=== PATIENT | female | born 1965 | race Caucasian/White ===

== ENCOUNTER → 2024-01-13 16:02 | Outpatient (REF) | payer OTHER, SELFPAY | LOC: WDC 16:02 | PROVIDERS: ATTENDING PHYSICIAN Obstetrics & Gynecology Gynecology; FAMILY PHYSICIAN Internal Medicine | DX: Z12.31 Encounter for screening mammogram for malignant neoplasm of breast (principal) | CPT/HCPCS: 77063; 77067 ==

== ENCOUNTER 2024-02-04 14:05 | Inpatient (IN) | payer OTHER, SELFPAY ==
[2024-02-04] VITALS (7 sets, daily range): BP systolic 105–155; BP diastolic 58–92
--- NOTE | 2024-02-04 08:02 | ED.GENMED ---
History of Present Illness
General
Chief Complaint: Post Operative Problem(s)
Source: patient
Time Seen by Provider: 02/04/24 07:45
History of Present Illness
History of Present Illness:
58yoF with a history of a recent appendectomy 2 weeks ago presenting for evaluation of chest pain. She was diagnosed with appendicitis while on a trip to [place] and the appendectomy was performed in [place] 2 weeks ago. She had some leg swelling
postoperatively and she had a venous duplex 1 week ago which was reportedly normal. She has been having pain underneath her right breast for the past several days. The pain was initially mild but is now worsening. Pain is worse with breathing. She
has not taken anything OTC for her symptoms. She denies any abdominal pain, fevers, cough. No calf pain or leg swelling currently. Her plane ride home from [place] was 4 days ago.
Past History
Past History
ED Past Medical History: None
ED Past Surgical History: None
Phy Exam
General Physical Exam
General Presentation: well appearing and no apparent distress
General age: appears stated age
General Skin: warm and dry
General Habitus: normal
General Mental: alert
ENT Exam
ENT Exam: normocephalic
Cardiovascular Exam
Cardiovascular Exam: regular rate/rhythm and no murmur
Pulmonary Exam
Pulmonary Exam: lungs clear, no respiratory distress, no rales, no rhonchi and other (+Mild tenderness to palpation of R anterior lower ribcage. No skin changes.)
Gastrointestinal Exam
Gastrointestinal Exam: non tender, soft, non distended and other (Surgical incisions healing well, c/d/i)
Neurological Exam
Neurological Exam: alert
[place] Coma Scale
Eye Opening: Spontaneous
Verbal Response: Oriented
Motor Response: Obeys Commands
GCS Total Score: 15
Skin Exam
Skin Exam: normal color and warm/dry
Psychiatric Exam
Psychiatric Exam: normal mood/affect
Course
Orders/Labs/Results
Orders:
Orders
02/04/24 07:37
EKG [Electrocardiogram (*1)] Urgent
Reason for Study: Chest Pain
EKG- Treatment ONCE
02/04/24 08:01
Cardiac Monitoring- Treatment ONCE
Acetaminophen [Tylenol] 1,000 mg PO NOW STA
02/04/24 08:36
Basic Metabolic Panel Urgent
Complete Blood Count/With Diff Urgent
D-Dimer Urgent
NT-proBNP Urgent
Troponin I Urgent
02/04/24 09:33
LFT [Mgiff-[id number]-[id number]] Urgent
Potassium Urgent
02/04/24 09:49
CT Chest Pe Study Urgent
Comment:
Reason For Exam: R sided pleuritic chest pain, elevated D-dimer
02/04/24 12:30
HYDROmorphone [Dilaudid] 0.5 mg IV NOW STA
02/04/24 13:25
COVID-19 Antigen Urgent
Source: Nasal Swab
Procalcitonin Routine
PCT Algorithmm Indication: Respiratory
Abnormal Lab Results
02/04/24 02/04/24
08:36 09:33
RBC 3.90 L 10^6/uL
(4.20-5.40)
Hgb 11.5 L g/dL
(12.0-16.0)
Hct 34.5 L %
(37.0-47.0)
Abs Immat Gran (auto) 0.1 H 10^3/uL
(0-0.05)
Absolute Lymphs (auto) 1.1 L 10^3/uL
(1.2-3.4)
Immature Gran % 1.1 H %
(0-0.5)
Lymphocytes % 16.5 L %
(20.5-51.1)
D-Dimer 1.68 H ug/mlFEU
(0.00-0.50)
Glucose 101 H mg/dl
(70-99)
Total Protein 6.0 L g/dl
(6.3-8.2)
02/04/24 08:36
02/04/24 09:33
Vital Signs
Initial and Last Documented VS:
Initial Vital Signs
Temp Pulse Resp BP Pulse Ox
100 F 90 14 155/92 98
02/04/24 07:33 02/04/24 07:33 02/04/24 07:33 02/04/24 07:33 02/04/24 07:33
Last Documented Vital Signs
Temp Pulse Resp BP Pulse Ox
100 F 66 23 105/60 95
02/04/24 07:33 02/04/24 12:15 02/04/24 12:15 02/04/24 10:00 02/04/24 12:15
MDM/Problems Addressed
Differential Diagnosis Includes:
58yoF here with pleuritic pain underneath R breast x several days. Recent appendectomy 2 weeks ago and plane ride from [place] 4 days ago. No calf pain or swelling. VSS and oxygen saturation is 98% in triage. She appears uncomfortable but is
non-toxic. There is slight tenderness to the chest wall on exam. Differential diagnosis includes but is not limited to: PE, pneumonia, pleural effusion, pleurisy, costochondritis
Initial ED plan: Check cardiac labs, D-dimer, and EKG. Will obtain CXR vs. CT depending on D-dimer results.
*EKG
Interpreted by ED Provider?: Yes
EKG Intrepretation Date: 02/04/24
Heart Rate: 89
Rate: normal
Rhythm: sinus
[place]: normal axis
Interval: normal interval
QRS Pattern: normal QRS
Ischemia: no ischemia
*Critical Care Note
Total Time (30-74mins, 75-104mins- exclusive of procedures): Not Applicable
Update Note
Update Note:
EKG shows NSR without ischemic changes and troponin WNL. D-dimer elevated and CTA chest subsequently ordered. CT is negative for pulmonary embolism but imaging does show small to moderate bilateral pleural effusions with a minimal pericardial
effusion. BNP 783. Unclear etiology of effusions. Will admit for further evaluation and management.
ED Attending Note
-
Portions of this chart may have been created with voice recognition software.� Occasional wrong word or��sound alike� substitutions may have occurred due to the inherent limitations of voice recognition software.
Discharge Plan
Departure
Patient Disposition: Admit
Date of Disposition: 02/04/24
Time of Disposition: 12:37
Presentation/result/management discussed w/ accepting MD/DO: Hospitalist
Discharge Problem:
Bilateral pleural effusion, Pleuritic chest pain
Prescriptions:
No Action
amoxicillin-pot clavulanate 875-125 mg Tablet
1 tab PO BID
Referrals:
Karen Worthington CRNP [Family Provider] -
Interventions
Interventions:
*Risk Screen - Suicide Last Done: 02/04/24 07:33
*General Assessment Last Done: 02/04/24 07:33
*Neglect/Abuse Screening Last Done: 02/04/24 07:33
ED- Fall Risk Assessment Last Done: 02/04/24 07:37
*ED COVID-19 Vaccine History Last Done: 02/04/24 07:33
ED-Skin Assessment Last Done: 02/04/24 07:37
Discharge Date and Time
Print Language: BAHAMIAN
[2024-02-04] MEDS: TYLENOL 1000 MG PO (08:25)
[2024-02-04 08:52] LABS: % Basophils 1.1 % (0-2); % Eosinophils 1.7 % (0-6); % Immature Granulocytes 1.1 % (0-0.5); % Lymphocytes 16.5 % (20.5-51.1); % Monocytes 7.2 % (1.7-9.3); % Neutrophils 72.4 % (42.2-75.2); Absolute Basophils 0.1 10^3/uL (0-0.2); Absolute Eosinophils 0.1 10^3/uL (0-0.7); Absolute Immature Granulocytes 0.1 10^3/uL (0-0.05); Absolute Lymphocytes 1.1 10^3/uL (1.2-3.4); Absolute Monocytes 0.5 10^3/uL (0.1-0.6); Absolute Neutrophils 4.8 10^3/uL (1.4-6.5); Hematocrit 34.5 % (37.0-47.0); Hemoglobin 11.5 g/dL (12.0-16.0); Mean Corp Hgb Conc. 33.3 g/dL (33.0-37.0); Mean Corpuscular Hgb 29.5 pg (27.0-31.0); Mean Corpuscular Volume 88.5 fL (81.0-99.0); Mean Platelet Volume 8.8 fL (7.4-10.4); Nucleated Red Blood Cells % 0 %; Platelet Count 362 10^3/uL (130-400); Red Cell Dist. Width 14.2 % (11.5-14.5); White Blood Cell Count 6.6 10^3/uL (4.8-10.8)
[2024-02-04 09:13] LABS: Blood Urea Nitrogen 14 mg/dl (7-17); Calcium 9.1 mg/dl (8.4-10.2); Carbon Dioxide 28 mmol/L (22-30); Chloride 105 mmol/L (98-107); Glucose 101 mg/dl (70-99); Sodium 143 mmol/L (135-145); eGFR > 60.00
[2024-02-04 09:16] LABS: NT-proBNP 783 pg/ml; Troponin I < 0.012 ng/ml
[2024-02-04 09:43] LABS: D-Dimer 1.68 ug/mlFEU (0.00-0.50)
[2024-02-04 10:01] LABS: ALT (SGPT) 13 U/L (0-35); AST (SGOT) 17 U/L (14-36); Albumin 3.7 g/dl (3.5-5.0); Alkaline Phosphatase 60 U/L (38-126); Direct Bilirubin 0.1 mg/dl (0.0-0.4); Potassium 4.3 mmol/L (3.5-5.1); Total Bilirubin 0.4 mg/dl (0.2-1.3)
[2024-02-04] MEDS: DILAUDID 0.5 MG IV ×2 (12:38→17:24)
--- NOTE | 2024-02-04 12:54 | HPS.HSE ---
Family Physician
-
Family Physician: MARION Padilla
Chief Complaint
-
chest pain
History of Present Illness
Ms. Lala Blanchard is a 58 yo woman with hx appendectomy 2 weeks ago presents to the ER with 3 days of pleuritic chest pain.
Patient was admitted to a hospital in [place] last week with appendicitis, she stated doctors told her it was severe, but not perforated. She was discharged on 10 days of Augmentin which she has been taking. Patient reports having some leg swelling
post op with normal LE US without DVT. She flew back to [place] on Thursday. On Thursday she developed sharp pain on right side of chest that hurts with a deep breath. No central chest pressure or pain and no pain on left side.
No lightheadedness or dizziness. No fevers/chills. No abdominal pain. No nausea/vomiting. LE swelling improving, she has been wearing compression stockings. She had a rash while hospitalized in [place] that is now resolved.
Medical History
Past Medical History
Past Medical History: Reports None
Past Surgical History: Reports None
Social History
Tobacco: Non-smoker
Alcohol: None
Family History
Family History: Not pertinent
Allergies / Home Medications
Allergies reflects when Allergies were last updated in [facility].
Home Medications with original date entered in [facility]
Allergy/Medication List:
Allergies
Allergy/AdvReac Type Severity Reaction Status Date / Time
No Known Allergies Allergy Verified 02/04/24 07:37
Home Medications
amoxicillin 875 mg-potassium clavulanate 125 mg tablet 1 tab PO BID 02/04/24
Review of Systems
-
History Source: Patient
A 12 point ROS was completed and negative except as noted: Yes
Physical Exam
Vital Signs
Vital Signs
Temp Pulse Resp BP Pulse Ox
100 F 66 23 105/60 95
02/04/24 07:33 02/04/24 12:15 02/04/24 12:15 02/04/24 10:00 02/04/24 12:15
Physical Exam
General: No Apparent Distress and Conversant
HEENT: PERRLA
Respiratory: Other (limited inspiration 2/2 pain ); No Wheezes
Cardiac: S1/S2 and Regular Rhythm
GI: Soft and Non Tender
Musculoskeletal: No Edema
Skin: Warm and Dry; No Rash
Neuro: AO x 3
Psych: Calm
Laboratory Results
-
02/04/24 08:36
02/04/24 09:33
Laboratory Results
Total Bilirubin 0.4 mg/dl (0.2-1.3) 02/04/24 09:33
AST 17 U/L (14-36) 02/04/24 09:33
ALT 13 U/L (0-35) 02/04/24 09:33
Alkaline Phosphatase 60 U/L (38-126) 02/04/24 09:33
Troponin I < 0.012 ng/ml 02/04/24 08:36
Data Reviewed
-
Diagnostic Radiology: Report Reviewed by me
Lab Data: Labs Reviewed by me
Impression/Plan
-
Ms. Lala Blanchard is a 58 yo woman with hx appendectomy 2 weeks ago presents to the ER with chest pain.
Triage VS: T 100, P 90, RR 14, BP 155/92, SpO2 98%
LABS: Na 143, K+ 4.3, Cl 105, CO2 28, BUN 14, Cr 0.7, Glucose 101, liver enzymes WNL
CHEST CT
IMPRESSION: Examination is negative for pulmonary embolism.
Small to moderate bilateral pleural effusions, right slightly larger than left. Compressive atelectasis within the adjacent posterior lower lobes of the lungs.
Additionally, slightly more anteriorly within the lower lobes of the lungs, there is patchy groundglass opacity. This could represent atelectasis, but pneumonia is a differential consideration, and please correlate clinically.
Minimal pericardial effusion.
Of note, no evidence for Marilyn B lines, with no findings that would be considered highly suggestive of a diffuse interstitial edema pattern.
Bilateral Pleural Effusions
Minimal pericardial Effusion
Sharp pleuritic chest pain
-chest CT is negative for PE, positive for bilateral pleural effusions right greater than left
-will check Covid and Procalcitonin
-admit to telemetry
-US Chest to see if fluid large enough for thoracentesis
-TTE
-consult Pulmonary
-Toradol to help with inflammatory pain
-IV dilaudid PRN severe pain
Recent Appendicitis
-patient to complete Augmentin course tomorrow - will order
DVT PPx Lovenox subQ
FULL CODE
[2024-02-04 15:09] LABS: COVID-19 Antigen Negative (Negative)
[2024-02-04] MEDS: TORADOL 15 MG IV ×2 (15:39→22:03)
[2024-02-04] MEDS: AUGMENTIN 875 MG/125 MG 1 TABLET PO ×2 (15:41→22:02)
[2024-02-04 15:50] LABS: Procalcitonin < 0.05 ng/ml (0.0-0.25)
[2024-02-04] MEDS: LOVENOX 40 MG SC (17:21)
--- NOTE | 2024-02-04 17:21 | PTCARENOTE ---
pt presents from ED via stretcher. pt is AAO*3, Vss, c/o pain on upper R quadrant. pt is oriented to the room. call cortés within the reach. plan of care ongoing.
--- NOTE | 2024-02-04 17:25 | CON.PUL ---
Consultation
Consultation Request
Date/Time Consultation Requested: 02/04/2024 - 161
Date/Time Consultation Performed: 02/04/2024 - 170
Requesting Provider: Dr. Chahal
Performing Provider: Dr. Quezada
Reason for Consultation: Chest pain/pleural effusions
Medical History
-
Chief Complaint: Right-sided chest pain
History of Present Illness:
58-year-old female nonsmoker with a past medical history of GERD, incidentally discovered pulmonary nodule (3 mm) and appendicitis s/p laparoscopic appendectomy (01/23/2024 in [facility]) who presents with severe right-sided chest pain. The
patient recently went to [place] for vacation, however on the way there she started to develop pain under her right breast. The pain was so bad that they did not make the flight and instead went to [facility] on 01/21/2024, and imaging was
completed which she was told was inflammation within her stomach. She was started on antacids with Protonix + Pepcid and then discharged home. They changed their flight and they ended up getting to [place] about a day and a half later and then she
had RLQ abd pain that later went to her belly button, and it became so severe that she ended up going to a hospital in [place]. She was told that she had appendicitis and she underwent a laparoscopic appendectomy on 01/23/2024. Procedure was
uncomplicated however the patient said that there was some collection that they were thinking about draining (she is not able to elaborate further details on this). She ultimately was discharged but then went back to the ER in [place] on 01/28/2024
due to lower extremity edema. Her left leg was worse than the right. DVT was suspected however ultrasound was reportedly done and was negative, per patient. She has been using compression stockings since that time which has been helping her leg
swelling. She is now coming in because this past Thursday (02/01/2024), she has been developing right-sided chest pain. She has shortness of breath when the pain comes on otherwise she has no difficulty breathing. In the ER she had a low-grade fever
to 100 �F, pulse rate 90, breathing at 14 breaths/min, BP 155/92 and saturating 98% on room air. Labs showed normal WBC at 6.6, Hb 11.5, D-dimer 1.68, troponin negative at <0.012, proBNP 783, procalcitonin <0.05, and COVID antigen negative. CTA
chest done which was negative for an acute PE, and there were small�moderate bilateral pleural effusions (R >L) with patchy groundglass opacities in the lower lobes of the lung with a minimal pericardial effusion. Chest ultrasound was done
confirming presence of small�moderate bilateral pleural effusions. Patient was given Tylenol and hydromorphone in the ER and then admitted to the hospitalist service with pulmonary consulted for additional management/recommendations.
When I saw the patient she was resting in bed, in no acute distress with her , Thanh, at bedside. She currently is doing okay at rest but when she gets her right-sided chest pain she has great difficulty breathing. She has no reported
abdominal pain, nausea, vomiting, fevers or chills. Also has no shortness of breath when laying flat and no shortness of breath waking her up from sleep. Also denies abdominal swelling, neck swelling, or leg swelling.
PMHx: GERD, appendicitis s/p laparoscopic appendectomy (12/2023 while in [place], [place]), pulmonary nodule (3mm)
PSHx: Laparoscopic appendectomy (performed in hospital in [place] and 12/2023), cholecystectomy, tonsillectomy
Past Medical History
Past Medical History: Other (Above as per HPI)
Past Surgical History: Other (Above as per HPI)
Social History
Tobacco: Non-smoker
Alcohol: None
Drug: None
Personal: (: Thanh)
Living: With Family
Family History
Family History: Other (Paternal grandfather: Alzheimer's dementia; maternal grandfather: SLE)
Allergies / Home Medications
Allergies
Allergy/AdvReac Type Severity Reaction Status Date / Time
No Known Allergies Allergy Verified 02/04/24 07:37
Home Medications
�Medication �Instructions �Recorded �Confirmed �Last Taken �Type
amoxicillin 875 mg-potassium 1 tab PO BID Infection 02/04/24 02/04/24 02/03/24 History
clavulanate 125 mg tablet
Review of Systems
-
History Source: Patient
All other systems: Negative unless noted
Vitals / Labs / Diagnostic Testing
Vital Signs
Temp Pulse Resp BP Pulse Ox
98.6 F 86 18 121/58 97
02/04/24 19:22 02/04/24 19:22 02/04/24 19:22 02/04/24 19:22 02/04/24 19:22
Lab Data
02/04/24 08:36
02/04/24 09:33
Diagnostic Testing:
Physical Exam
-
HEENT: Normocephalic and Anicteric
Cardiovascular: S1/S2 and Peripheral Edema (negative)
Respiratory: Clear, Wheeze (negative), Rales (negative), Rhonchi (negative), Non-Labored Respirations and Other (Diminished breath sounds bilaterally in the bases; remainder of lung langston are clear to auscultation bilaterally)
GI: Soft, Non Distended, Non Tender and Normal Bowel Sounds
Neurology: AO x 3 and Tremors (negative)
Skin: Warm and Dry
General: Respiratory Distress (negative), Comfortable, Pain (right sided chest pain, reproducible with palpation), Fever (negative) and Chills (negative)
Assessment
-
Assessment: 58-year-old female nonsmoker with a PMHx of GERD, incidentally discovered pulmonary nodule (3 mm) and appendicitis s/p laparoscopic appendectomy (01/23/2024 in [place], [place]) who presents with severe right-sided chest pain. The
patient and her recently were heading to [place] for vacation when she developed right lower chest/upper abdominal pain and ended up going to hospital at the [facility] on 01/21/2024 was diagnosed with gastritis and discharged on
antacids. They later took a flight to [place] and ended up going to [facility] on 01/22 where she was diagnosed with appendicitis and underwent laparoscopic appendectomy. Course uncomplicated and she was discharged on Augmentin. She went
back to the ER on 01/28/2024 for lower extremity edema which resulted in negative unless mentioned above duplex study for DVT (per patient). She is now been having severe right-sided pleuritic chest pain has been worsening since this past Thursday
(02/01/2024). When pain is not ongoing, she feels okay with no shortness of breath. She had a low-grade fever in the ER to 100 �F, procalcitonin was negative at <0.05, troponin was negative at <0.012, and CTA chest showed bilateral pleural
effusions with no acute PE and bibasilar patchy groundglass opacities above the pleural effusions. Also a small pericardial effusion. She was given pain medications in the ER and admitted to the hospitalist service and now pulmonary consulted for
additional management/recommendations.
Chronic conditions [employer]: GERD, appendicitis s/p laparoscopic appendectomy (12/2023 while in [place], [place]), pulmonary nodule (3mm)
Impression:
#Severe right-sided chest pain which is pleuritic in nature
#Bilateral pleural effusions, suspected to be due to recent appendicitis, possibly with peritonitis s/p appendicitis with translocation of ascitic fluid into pleural space; unlikely heart failure
#Anemia
#Elevated proBNP (783 on 02/04/2024)
#Incidentally discovered 3 mm nodule (seen during imaging while at [facility] on 01/21/2024)
#GERD
Plan:
- Check abdominal ultrasound with Dopplers to assess liver morphology, assess for ascites and see if any other intra-abdominal source could be responsible for bilateral pleural effusions
- She clinically does not have hallmark features of CHF, with no orthopnea, no PND, no lower extremity edema and no abdominal swelling, and no apparent JVD
- This is why I feel that the pleural effusions are likely due to intra-abdominal source given her recent appendicitis with laparoscopic appendectomy; she told me that during her hospitalization in [facility], that she had some sort of
'collection,' and they were thinking about draining it. She was unable to elaborate further details on this. We should try to get the actual medical records from [facility]
- Check transthoracic echo to assess LVEF, valvular heart function and right-sided pressures
- If abdominal ultrasound with Dopplers + echo are unrevealing then would consider imaging with CT, check and CT chest and even possibly CT abdomen/pelvis to see if any etiology of her chest pain, as well as any intra-abdominal etiology of her
pleural effusions
- Monitor I/O
- Consider trial of diuresis --> I will give her 20mg IV lasix now given she is Lasix na�ve
- Patient was finishing up a course of Augmentin following her recent bout of appendicitis --> complete this while she is currently hospitalized and then stop antibiotics
- Unclear if chest pain is a sort of pleurisy; given that she also has pericardial fluid, she could have some sort of pleuropericarditis with an inflammatory etiology
- Check CRP + ESR --> if inflammatory markers are markedly elevated then would consider a trial of systemic steroids
- There is no EKG findings suspicious for pericarditis so would hold off at the moment with colchicine or high-dose aspirin
- Consult cardiology given her chest pain findings with pericardial effusion as she may need a pericardial drain if enlarges or if there are signs of early tamponade on echo
- Pain control - prn dilaudid; will also add lidocaine patch
- Aspiration precautions
- Maintain SpO2 >90-94% with supplemental O2 as needed
- Incentive spirometer encouraged
- Replete electrolytes with K>4, Mg>2
- Maintain euglycemia with goal BG >100 and <180
- prn nebulized bronchodilators - not currently bronchospastic
- Regarding her 3 mm nodule, she is a non-smoker with no personal history of cancer and no family history of malignancy. No unintentional weight loss, night sweats or coughing up blood. Based on Fleischner guidelines, no additional follow-up is
needed at this time
- DVT ppx: LMWH
Pulmonary service will continue to follow along.
Data:
CTA Chest 02/04/2024:
Examination is negative for pulmonary embolism.
Small to moderate bilateral pleural effusions, right slightly larger than left. Compressive atelectasis within the adjacent posterior lower lobes of the lungs.
Additionally, slightly more anteriorly within the lower lobes of the lungs, there is patchy groundglass opacity. This could represent atelectasis, but pneumonia is a differential consideration, and please correlate clinically.
Minimal pericardial effusion.
Of note, no evidence for Marilyn B lines, with no findings that would be considered highly suggestive of a diffuse interstitial edema pattern.
Total time spent today was 57 minutes for this encounter. Time includes reviewing laboratory test/imaging results, reviewing pertinent medical records, obtaining and reviewing medical history, performing an appropriate exam, ordering medications,
tests and procedures. Time also includes documentation of this encounter, coordinating patient care and communicating with other healthcare professionals. Total time does not include separately billed tests performed on this date of service.
[2024-02-04] MEDS: LASIX 20 MG IV (20:35)
[2024-02-04] MEDS: LIDOCAINE 4% PATCH 1 PATCH TOPICAL (20:37)
[2024-02-05] VITALS (11 sets, daily range): BP systolic 62–152; BP diastolic 54–93
[2024-02-05] MEDS: TORADOL 15 MG IV ×4 (03:48→21:36)
[2024-02-05 08:10] LABS: % Basophils 0.7 % (0-2); % Immature Granulocytes 0.6 % (0-0.5); % Lymphocytes 16.9 % (20.5-51.1); % Monocytes 9.4 % (1.7-9.3); % Neutrophils 71.4 % (42.2-75.2); Absolute Basophils 0.1 10^3/uL (0-0.2); Absolute Eosinophils 0.1 10^3/uL (0-0.7); Absolute Immature Granulocytes 0.1 10^3/uL (0-0.05); Absolute Lymphocytes 1.4 10^3/uL (1.2-3.4); Absolute Monocytes 0.8 10^3/uL (0.1-0.6); Absolute Neutrophils 5.8 10^3/uL (1.4-6.5); Hematocrit 32.5 % (37.0-47.0); Hemoglobin 10.9 g/dL (12.0-16.0); Mean Corp Hgb Conc. 33.5 g/dL (33.0-37.0); Mean Corpuscular Hgb 30.4 pg (27.0-31.0); Mean Corpuscular Volume 90.8 fL (81.0-99.0); Nucleated Red Blood Cells % 0 %; Platelet Count 345 10^3/uL (130-400); Red Blood Cell Count 3.58 10^6/uL (4.20-5.40); White Blood Cell Count 8.1 10^3/uL (4.8-10.8)
[2024-02-05 08:30] LABS: Erythrocyte Sed Rate 26 mm/hour (0-20)
[2024-02-05] MEDS: AUGMENTIN 875 MG/125 MG 1 TABLET PO ×2 (09:14→20:25)
[2024-02-05 09:39] LABS: Blood Urea Nitrogen 15 mg/dl (7-17); Calcium 8.9 mg/dl (8.4-10.2); Carbon Dioxide 28 mmol/L (22-30); Chloride 104 mmol/L (98-107); Estimated Creatinine Clearance 75 ml/min; Glucose 98 mg/dl (70-99); Magnesium 2.2 mg/dl (1.6-2.3); Phosphorus 3.8 mg/dl (2.5-4.5); Potassium 4.5 mmol/L (3.5-5.1); Sodium 142 mmol/L (135-145); eGFR > 60.00
--- NOTE | 2024-02-05 09:46 | W.PN.PUL3 ---
Today's Communication / Plan
-
Continue with gentle diuresis
Recheck CXR tomorrow morning
If pleural effusions persist then she may need several more days of Lasix which can likely be PO and continued s/p discharge with eventual stop date
Awaiting medical records from [facility]
Finish antibiotic course that she was on CAR WIPER for her recent severe appendicitis s/p laparoscopic appendectomy
Pain control
Pulmonary service will continue to follow along. Outpatient follow-up will also be arranged
Assessment
-
Assessment: 58-year-old female nonsmoker with a PMHx of GERD, incidentally discovered pulmonary nodule (3 mm) and appendicitis s/p laparoscopic appendectomy (01/23/2024 in [place], [place]) who presents with severe right-sided chest pain. The
patient and her recently were heading to [place] for vacation when she developed right lower chest/upper abdominal pain and ended up going to hospital at the [facility] on 01/21/2024 was diagnosed with gastritis and discharged on
antacids. They later took a flight to [place] and ended up going to [facility] on 01/22 where she was diagnosed with appendicitis and underwent laparoscopic appendectomy. Course uncomplicated and she was discharged on Augmentin. She went
back to the ER on 01/28/2024 for lower extremity edema which resulted in negative unless mentioned above duplex study for DVT (per patient). She is now been having severe right-sided pleuritic chest pain has been worsening since this past Thursday
(02/01/2024). When pain is not ongoing, she feels okay with no shortness of breath. She had a low-grade fever in the ER to 100 �F, procalcitonin was negative at <0.05, troponin was negative at <0.012, and CTA chest showed bilateral pleural
effusions with no acute PE and bibasilar patchy groundglass opacities above the pleural effusions. Also a small pericardial effusion. She was given pain medications in the ER and admitted to the hospitalist service and now pulmonary consulted for
additional management/recommendations.
Chronic conditions CAR WIPER: GERD, appendicitis s/p laparoscopic appendectomy (12/2023 while in [place], [place]), pulmonary nodule (3mm)
Impression:
#Severe right-sided chest pain which is pleuritic in nature
#Bilateral pleural effusions, suspected to be due to recent appendicitis, likely with peritonitis s/p appendicitis with translocation of ascitic fluid into pleural space; unlikely heart failure
#Anemia
#Elevated proBNP (783 on 02/04/2024)
#Incidentally discovered 3 mm nodule (seen during imaging while at [facility] on 01/21/2024)
#GERD
Plan:
- Check abdominal ultrasound with Dopplers --> shows slightly enlarged liver with no focal hepatic lesion, no report of ascites and history of cholecystectomy with no biliary ductal dilatation
- She clinically does not have hallmark features of CHF, with no orthopnea, no PND, no lower extremity edema and no abdominal swelling, and no apparent JVD
- This is why I feel that the pleural effusions are likely due to intra-abdominal source given her recent appendicitis with laparoscopic appendectomy; she told me that during her hospitalization in [facility], that she had some sort of
collection at her appendix site due to the severe inflammation, and the surgeon was thinking about draining it. She was unable to elaborate further details on this. We should try to get the actual medical records from [facility] (I request
this today � 02/05/2024)
- She said that she also gained about 11 pounds following her hospitalization from [place]
- Check transthoracic echo --> shows normal LV size and systolic function with LVEF 60 to 65% with normal diastolic function, normal RV size and function, mild MR, mild TR and normal PASP. Small pericardial effusion without hemodynamic compromise
- If she clinically deteriorates, then consider imaging with CT, check and CT chest and even possibly CT abdomen/pelvis to see if any etiology of her chest pain, as well as any intra-abdominal etiology of her pleural effusions
- Monitor I/O
- Trial of diuresis --> on 02/03 I gave her 20mg IV lasix given she is Lasix na�ve --> give another 40mg IV lasix tomorrow AM and re-check CXR
- She underwent right-sided thoracentesis today, removing 250 cc of clear yellow, exudative fluid (suspect pseudo-exudative in setting of Lasix on 02/03), LDH: 187, pH 7.5, and WBC 3069 with 54% monocytes.
-Follow-up pleural fluid culture + cytopathology
- Patient was finishing up a course of Augmentin following her recent bout of appendicitis --> complete this while she is currently hospitalized and then stop antibiotics
- Unclear if chest pain is a sort of pleurisy; given that she also has pericardial fluid, she could have some sort of pleuropericarditis with an inflammatory etiology
- ESR 26, and CRP: 24 --> although these are elevated these are not severely high. Hold off on systemic steroids at this time
- There is no EKG findings suspicious for pericarditis so would hold off at the moment with colchicine or high-dose aspirin
- Cardiology consulted --> recs appreciated (holding off on colchicine for now and no need for pericardial drain as per echo findings)
- Pain control - prn dilaudid; will also add lidocaine patch
- Aspiration precautions
- Maintain SpO2 >90-94% with supplemental O2 as needed
- Incentive spirometer encouraged
- Replete electrolytes with K>4, Mg>2
- Maintain euglycemia with goal BG >100 and <180
- prn nebulized bronchodilators - not currently bronchospastic
- Regarding her 3 mm nodule, she is a non-smoker with no personal history of cancer and no family history of malignancy. No unintentional weight loss, night sweats or coughing up blood. Based on Fleischner guidelines, no additional follow-up is
needed at this time
- DVT ppx: LMWH
Pulmonary service will continue to follow along.
Data:
CTA Chest 02/04/2024:
Examination is negative for pulmonary embolism.
Small to moderate bilateral pleural effusions, right slightly larger than left. Compressive atelectasis within the adjacent posterior lower lobes of the lungs.
Additionally, slightly more anteriorly within the lower lobes of the lungs, there is patchy groundglass opacity. This could represent atelectasis, but pneumonia is a differential consideration, and please correlate clinically.
Minimal pericardial effusion.
Of note, no evidence for Marilyn B lines, with no findings that would be considered highly suggestive of a diffuse interstitial edema pattern.
Total time spent today was 38 minutes for this encounter. Time includes reviewing laboratory test/imaging results, reviewing pertinent medical records, obtaining and reviewing medical history, performing an appropriate exam, ordering medications,
tests and procedures. Time also includes documentation of this encounter, coordinating patient care and communicating with other healthcare professionals. Total time does not include separately billed tests performed on this date of service.
Subjective Data
-
Date of Service:
Date of Service: February 05, 2024
Chief Complaint: Pulmonary Follow Up
Subjective:
Patient seen after her thoracentesis. She does not feel much different than yesterday. She says the pain medications is helping greatly. Thoracentesis removed to 50 cc from right hemithorax which was exudative due to LDH. She otherwise is
breathing comfortably on room air. No acute events reported from overnight. She currently denies HODGES, abdominal pain, nausea, fevers or chills.
Review of Systems
General: Other (Negative unless mentioned above)
Objective Data
Data Reviewed
Vital Signs / I&O / Oxygen:
Vital Signs
Temp Pulse Resp BP Pulse Ox
98.1 F 87 18 152/93 94
02/05/24 11:08 02/05/24 11:08 02/05/24 11:08 02/05/24 11:08 02/05/24 11:08
Intake and Output
02/04/24 02/05/24 02/06/24
06:59 06:59 06:59
Intake Total 480 / 480
Balance 480 / 480
SaO2 94
Physical Exam
General: Respiratory Distress (negative), Comfortable, Chills (negative) and Sweats (negative)
HEENT: Normocephalic and Anicteric
Cardiovascular: S1-S2 and Peripheral Edema (negative)
Respiratory: Wheeze (negative), Crackles (negative), Rhonchi (negative) and Other (Diminished breath sounds at the bases)
GI: Soft, Non Distended, Non Tender and Normal Bowel Sounds
Neurology: AO x 3 and Tremors (negative)
Skin: Warm, Dry and Jaundice (negative)
Labs/Micro/Reports
Lab Data
02/05/24 07:28
02/05/24 07:28
--- NOTE | 2024-02-05 13:43 | CON.CAR ---
Addendum entered and electronically signed by Raulito Dee MD 02/05/24 16:35:
I saw and examined the patient.
The [employer] Agent's note was reviewed and I agree with the note.
Comment:
GEN: No distress, awake, Ox3
HEENT: supple, anicteric, mmm
LUNGS: dec BS R base
CV: Reg, S1/S2, / syst LSB, no murmur
ABD: soft, BS+, NT/ND
EXT: No edema
NEURO: Gross non-focal
SKIN: No rash
plan:
She has a past medical history of GERD who presents with right sided pleuritic chest pain. She had recent appendicitis 2 weeks ago and was on amoxicillin as outpatient. For several days she has noticed right sided chest discomfort associated with
deep breaths. This was in her right axilla under her breast area. She was found to have a low-grade fever with an abnormal D-dimer. CT scan had no PE but did reveal bilateral pleural effusions right greater than left. Echocardiogram revealed
preserved ejection fraction with no significant valve disease and a trace to small pericardial effusion. PA pressure 25-30.
Agree with plan for diagnostic thoracentesis. proBNP is very mildly elevated. I do not suspect that the pericardial effusion is significant and clinically her EKG is normal with no overt signs of pericarditis.
Agree with plan to gently diurese and follow her clinically. Will defer to pulmonary regarding antibiotics.
At this point I would likely hold off on colchicine. Will repeat EKG in AM.
Original Note:
Consultation
Consultation Request
Date/Time Consultation Requested: 02/05/2024
Date/Time Consultation Performed: 02/05/2024
Requesting Provider: Dr. Lalo Cedeno
Performing Provider: Sarai Elizabeth PA-C for Dr. Dee
Reason for Consultation: Chest pain, pericardial effusion
Medical History
-
History of Present Illness:
Patient is a 58-year-old female with past medical history significant for GERD, chronic lumbar back pain who presented to emergency department 02/04/2024 with right sided pleuritic chest pain. Patient was recently treated for acute appendicitis and
underwent urgent appendectomy in [facility] while on vacation. Postoperatively she had some lower extremity edema and reports she had normal lower extremity venous ultrasounds while in [place]. She has been utilizing compression stockings
since her hospitalization with gradual improvement of edema. She was discharged home on 10 days of Augmentin for concern of possible fluid collection and flew back to [place] on 01/31/2024. On 02/01/2024 she developed sharp right sided chest
discomfort associated with mild shortness of breath which was worse with taking deep breaths. She denied associated fevers, chills, abdominal pain, nausea, vomiting, lightheaded or dizziness. Found to have low-grade fever on presentation to
emergency department. D-dimer 1.68. Troponin was negative. proBNP 783. Prolactin unremarkable. CT of chest was negative for PE but did show small to moderate bilateral pleural effusions right greater than left with patchy groundglass opacities
in lower lobes. There was also minimal pericardial effusion. Chest ultrasound was performed demonstrating small to moderate bilateral pleural effusions. Patient had echocardiogram 02/05/2024 which demonstrated preserved ejection fraction with mild
MR, TR and small pericardial effusion without evidence of hemodynamic compromise.
Past medical history:
GERD
Lumbar back pain
Spondylolysis
Cholecystectomy
Tonsillectomy
Appendectomy
Past Medical History
Past Medical History: Other (See HPI)
Past Surgical History: Appendectomy (12/2023), Cholecystectomy (2009) and Tonsilectomy
Social History
Tobacco: Non-Smoker
Alcohol: None
Drug: None
Personal:
Living: With Family
Family History
Family History: Other (Paternal grandfather: Alzheimer's dementia; maternal grandfather: SLE))
Allergies / Home Medications
Allergy/AdvReac Type Severity Reaction Status Date / Time
No Known Allergies Allergy Verified 02/04/24 07:37
�Medication �Instructions �Recorded �Confirmed �Type
amoxicillin 875 mg-potassium 1 tab PO BID Infection 02/04/24 02/04/24 History
clavulanate 125 mg tablet
Review of Systems
-
History Source: Patient
All other systems: Negative unless noted
Physical Exam
Vital Signs
Temp Pulse Resp BP Pulse Ox
98.1 F 87 18 152/93 94
02/05/24 11:08 02/05/24 11:08 02/05/24 11:08 02/05/24 11:08 02/05/24 11:08
GEN: No distress, awake, Ox3
HEENT: supple, anicteric, mmm
LUNGS: Very mildly diminished at bases otherwise CTA, no wheezes/rales
CV: Reg, S1/S2, no murmur, rub or gallop
ABD: soft, BS+, NT/ND
EXT:Trace bilateral edema with intact compression socks
NEURO: Gross non-focal
SKIN: No rash, warm, dry, pink
Lab Results
02/05/24 07:28
02/05/24 07:28
Troponin I < 0.012 ng/ml 02/04/24 08:36
Aih-F-Ychxcjfjhrp Pept 783 pg/ml 02/04/24 08:36
Impression / Plan
-
Family Physician: MARION Padilla
Wash Box Operator: None prior to hospitalization. Initial consult Dr. Dee
Impression:
Presented 02/04/2024 with pleuritic right sided chest pain
Pericardial effusion, small on echo
Incidental 3 mm pulmonary nodule
Small to moderate bilateral pleural effusions right greater than left
s/p Successful right ultrasound-guided thoracentesis, yielding 250 cc of clear yellow pleural fluid 02/05/2024
Recent appendicitis with laparoscopic appendectomy 01/23/2024
GERD
Echo 02/05/2024: EF 60 to 65%. Normal regional wall motion. Mild MR, mild TR, PAP 25-30 mmHg. Small pericardial effusion without evidence of hemodynamic compromise
Plan:
-Presented 02/04/2024 with pleuritic right sided chest pain associated with shortness of breath.
-Recent appendicitis with laparoscopic appendectomy 01/23/2024, completing course of Augmentin. Abdominal ultrasound 02/05/2024 shows no evidence of biliary ductal dilatation with mild hepatomegaly
-Elevated D-dimer 1.[address] of chest for pulmonary embolism
-Small to moderate bilateral pleural effusions right greater than left. Being followed by pulmonary and was given 1 dose of IV Lasix 02/04/2024. Underwent diagnostic right thoracentesis yielding 250 cc clear yellow fluid 02/05/24, cytology pending
-EKG sinus rhythm without evidence of ischemia. Troponin negative. Patient's lower right sided chest pain does not appear to be ischemic in nature nor does it appear to be secondary to her pericardial effusion. It has improved with Toradol.
-Trace to small pericardial effusion without evidence of hemodynamic compromise. Unclear etiology. Right sided chest pain does not sound like pericarditis.
-Would hold on starting colchicine or steroids at this time. Can consider repeat echocardiogram as outpatient in 3 months or sooner if symptoms should become more concerning for pericardial effusion enlarging/tamponade
-Elevated sed rate (26) and CRP (24). Nonspecific findings given recent appendicitis with urgent appendectomy
HPI 02/05/2024:
Patient is a 58-year-old female with past medical history significant for GERD, chronic lumbar back pain who presented to emergency department 02/04/2024 with right sided pleuritic chest pain. Patient was recently treated for acute appendicitis and
underwent urgent appendectomy in [facility] while on vacation. Postoperatively she had some lower extremity edema and reports she had normal lower extremity venous ultrasounds while in [place]. She has been utilizing compression stockings
since her hospitalization with gradual improvement of edema. She was discharged home on 10 days of Augmentin for concern of possible fluid collection and flew back to [place] on 01/31/2024. On 02/01/2024 she developed sharp right sided chest
discomfort associated with mild shortness of breath which was worse with taking deep breaths. She denied associated fevers, chills, abdominal pain, nausea, vomiting, lightheaded or dizziness. Found to have low-grade fever on presentation to
emergency department. D-dimer 1.68. Troponin was negative. proBNP 783. Prolactin unremarkable. CT of chest was negative for PE but did show small to moderate bilateral pleural effusions right greater than left with patchy groundglass opacities
in lower lobes. There was also minimal pericardial effusion. Chest ultrasound was performed demonstrating small to moderate bilateral pleural effusions. Patient had echocardiogram 02/05/2024 which demonstrated preserved ejection fraction with mild
MR, TR and small pericardial effusion without evidence of hemodynamic compromise.
Data Reviewed
-
EKG: Report Reviewed by me, Discussed with Physician, Discussed with Nurse, Discussed with Patient and Discussed with Family
Radiology: Report Reviewed by me, Discussed with Physician, Discussed with Nurse and Discussed with Patient
CT Scan: Report Reviewed by me, Discussed with Physician, Discussed with Nurse, Discussed with Patient and Discussed with Family
Ultrasound: Report Reviewed by me, Discussed with Physician and Discussed with Patient
Medical Tests (Nuc Med, Echo etc): Report Reviewed by me, Discussed with Physician, Discussed with Patient and Discussed with Family
Labs: Labs Reviewed by me, Discussed with Physician, Discussed with Patient and Discussed with Family
Old Records: Reviewed
--- NOTE | 2024-02-05 15:00 | PTCARENOTE ---
Pt returned from [facility]. Report from Ella RN.Pt awake, alert and oriented x3. Pt has bandaid to right back, CDI. Pt VSS 95% on RA.Pt continues with pain under right breast with inspiration, tolerable at this time. Pt reoriented to room,call cortés
within reach, plan of care continues.
[2024-02-05 15:32] LABS: Body Fluid Mononuclear 53.5 %; Body Fluid Polymorphonuclear 46.5 %; Body Fluid WBC 3269 /CUMM
[2024-02-05 15:37] LABS: Body Fluid Second Tech DW
--- NOTE | 2024-02-05 15:41 | W.PN.HOSP.TC ---
Addendum entered and electronically signed by Mirna Mckenzie MD 02/05/24 17:08:
I saw and evaluated the patient independently. I reviewed the resident�s note and agree with findings and plan as documented by Dr. Cedeno.
GENERAL: well developed, well nourished, female in no apparent distress
HEENT: NC/AT
HEART: regular rate and rhythm, +S1, +S2--no rub heard
LUNGS : clear to auscultation bilaterally--decreased breath sounds bilaterally
ABDOM: soft, nontender, nondistended, + bowel sounds
EXT: no cyanosis, clubbing, or edema
NEUROLOGIC: grossly intact
Pleuritic chest pain--no evidence of PE on CT scan but does have bilateral pleural effusions--also noted was small pericardial effusion--consult IR for thoracentesis, 250 ml from right drained, studies sent--possible etiology is rheum related or
from recent appendix surgery --apprec cards/pulm--agree history and EKG not consistent with pericarditis--lasix given by cards--ECHO done which shows mild MR/TR--follow up as outpt--no need for colchicine
Elevated Inflammatory Markers-- ESR 26, CRP 24- No history of rash or joint pain-- RF/COURTNEY to r/o autoimmune causes
Recent Hx of Appendicitis- Last day of Augmentin from previous admission in [facility]
DVT Proph - Lovenox
Original Note:
Today's Communication/Plan
-
.
Assessment / Plan
Assessment / Plan
1. Pleurisy
- Chest CTA negative for PE
- CTA exhibited small to moderate R>L pleural effusions; US confirmed.
- Cardiology/Pulmonology Consulted
- Pain Control
2. Pleural Effusions
- CTA Chest shows R>L
- [facility] consulted; to perform diagnostic thoracocentesis; 250 cc yellow fluid drained from right
- Follow up fluid cytology, culture/gram stain, LDH/protein
- Given 1 dose of LASIX 11/7; LASIX naive
3. Pericardial Effusion
= Appreciate Cards; can follow up on an outpatient basis
= ECHO shows mild MR, mild TR
- no evidence of cardiovascular compromise
- per cards, can consider repeat echo as outpatient in 2-3 months.
4. Elevated Inflammatory Markers
- ESR 26, CRP 24
- No history of rash or joint pain.
- RF/COURTNEY to r/o autoimmune causes of pleurisy/pericarditis
5. Recent Hx of Appendicitis
- Last day of Augmentin from previous admission in [facility]
6. DVT PPx
- Lovenox
Anticipated Discharge: 24 - 48 hours
Subjective/Interval History
-
Date of Service: February 05, 2024
58F with a PMHx of GERD, incidental pulmonary nodule and very recent history of appendicitis s/p lap appy, lower extremity edema and gastritis who presented with 3 days of pleuritic chest pain without SOB, orthopnea, PND, or cough. Pt does not have
any new complaints this morning.
Objective Data
-
Labs:
Laboratory Results
02/05/24
07:28
WBC 8.1
Hgb 10.9 L
Hct 32.5 L
Plt Count 345
Sodium 142
Potassium 4.5
Chloride 104
Carbon Dioxide 28
BUN 15
Creatinine 0.8
Glucose 98
Calcium 8.9
Vital Signs:
Vital Signs
Temp Pulse Resp BP Pulse Ox
98.5 F 84 15 139/72 94
02/05/24 15:02 02/05/24 15:23 02/05/24 15:13 02/05/24 15:23 02/05/24 15:02
I&O
02/04/24 02/05/24 02/06/24
06:59 06:59 06:59
Intake Total 480 / 480
Balance 480 / 480
Review of Systems
-
History Source: Patient
Constitutional: Reports No Symptoms
Respiratory: Reports Pleurisy (intermittent)
Cardiac: Reports No Symptoms
Abdomen/GI: Reports No Symptoms
Musculoskeletal: Reports No Symptoms
Neuro: Reports No Symptoms
Physical Exam
-
General: Well Developed, Well Nourished and No Apparent Distress
HEENT: Normocephalic and Atraumatic
Respiratory: Clear to Auscultation
Cardiac: Regular Rhythm, S1/S2 and Other (right sided chest tender to palpation mildly)
GI: Soft and Nontender
Skin: Warm and Dry
Neuro: Awake, Alert and AO x 3
Psych: Calm
Data Reviewed
-
Diagnostic Radiology: Report Reviewed by me and Discussed with Patient
CT Scan: Report Reviewed by me and Discussed with Patient
Ultrasound: Report Reviewed by me and Discussed with Patient
Labs: Labs Reviewed by me and Discussed with Patient
[2024-02-05 15:42] LABS: Body Fluid LDH 187 U/L; Body Fluid Protein 2.7 g/dl
--- NOTE | 2024-02-05 16:17 | CM ---
Patient seen at bedside with physicians. Patient stated that she lives with her in a 3 story home. Patient stated that she has no DME at home, PCP was in [place], and she uses the [facility].
[2024-02-05] MEDS: LOVENOX 40 MG SC (17:17)
[2024-02-06 03:09] VITALS: BP 129/70
[2024-02-06] MEDS: TORADOL 15 MG IV (03:14)
[2024-02-06 06:32] LABS: Hematocrit 32.9 % (37.0-47.0); Hemoglobin 10.6 g/dL (12.0-16.0); Mean Corp Hgb Conc. 32.2 g/dL (33.0-37.0); Mean Corpuscular Volume 93.2 fL (81.0-99.0); Mean Platelet Volume 8.9 fL (7.4-10.4); Platelet Count 291 10^3/uL (130-400); Red Blood Cell Count 3.53 10^6/uL (4.20-5.40); Red Cell Dist. Width 13.9 % (11.5-14.5); White Blood Cell Count 5.8 10^3/uL (4.8-10.8)
[2024-02-06 07:11] LABS: ALT (SGPT) 10 U/L (0-35); AST (SGOT) 14 U/L (14-36); Albumin 3.1 g/dl (3.5-5.0); Alkaline Phosphatase 50 U/L (38-126); Blood Urea Nitrogen 16 mg/dl (7-17); Carbon Dioxide 27 mmol/L (22-30); Chloride 106 mmol/L (98-107); Estimated Creatinine Clearance 85 ml/min; Glucose 95 mg/dl (70-99); Potassium 4.2 mmol/L (3.5-5.1); Sodium 142 mmol/L (135-145); Total Bilirubin 0.5 mg/dl (0.2-1.3); Total Protein 5.3 g/dl (6.3-8.2); eGFR > 60.00
[2024-02-06 07:55] VITALS: BP 149/64
[2024-02-06 08:36] LABS: LDH 180 U/L (120-246)
[2024-02-06] MEDS: LASIX 40 MG IV (09:56)
[2024-02-06] MEDS: FLUSH (NSS) 2 FLUSH IV (09:57)
[2024-02-06 11:20] VITALS: BP 118/55
--- NOTE | 2024-02-06 11:42 | W.PN.CARDCBS ---
Today's Communication / Plan
-
Unlikely to have pericarditis
Will sign off
Impression / Plan
-
Family Physician: MARION Padilla
It Help Desk Analyst: None prior to hospitalization. Initial consult Dr. Dee
Impression:
Presented 02/04/2024 with pleuritic right sided chest pain
Pericardial effusion, small on echo
Incidental 3 mm pulmonary nodule
Small to moderate bilateral pleural effusions right greater than left
s/p Successful right ultrasound-guided thoracentesis, yielding 250 cc of clear yellow pleural fluid 02/05/2024
Recent appendicitis with laparoscopic appendectomy 01/23/2024
GERD
Echo 02/05/2024: EF 60 to 65%. Normal regional wall motion. Mild MR, mild TR, PAP 25-30 mmHg. Small pericardial effusion without evidence of hemodynamic compromise
Plan:
Presented 02/04/2024 with pleuritic right sided chest pain associated with shortness of breath and found to have pleural effusions R> L.
Echocardiogram results noted above with small pericardial effusion and no evidence of hemodynamic compromise.
Recent appendicitis with laparoscopic appendectomy 01/23/2024. Abdominal ultrasound 02/05/2024 shows no evidence of biliary ductal dilatation with mild hepatomegaly
Elevated D-dimer 1.[address] of chest for pulmonary embolism.
Elevated sed rate (26) and CRP (24)
Cardiology asked to consider the possible diagnosis of pericarditis.
Presenting ECG and subsequent ECG both without typical ECG findings of pericarditis. R sided location is also not typical of pericarditis.
Overall we feel this is unlikely to be pericarditis and is more c/w pleuritis.
She has undergone thoracentesis and feels 'much better'.
Would hold on starting colchicine or steroids at this time. Can consider repeat echocardiogram as outpatient in 3 months or sooner should symptoms warrant
Will sign odff, please call us back if needed.
HPI 02/05/2024:
Patient is a 58-year-old female with past medical history significant for GERD, chronic lumbar back pain who presented to emergency department 02/04/2024 with right sided pleuritic chest pain. Patient was recently treated for acute appendicitis and
underwent urgent appendectomy in [facility] while on vacation. Postoperatively she had some lower extremity edema and reports she had normal lower extremity venous ultrasounds while in [place]. She has been utilizing compression stockings
since her hospitalization with gradual improvement of edema. She was discharged home on 10 days of Augmentin for concern of possible fluid collection and flew back to [place] on 01/31/2024. On 02/01/2024 she developed sharp right sided chest
discomfort associated with mild shortness of breath which was worse with taking deep breaths. She denied associated fevers, chills, abdominal pain, nausea, vomiting, lightheaded or dizziness. Found to have low-grade fever on presentation to
emergency department. D-dimer 1.68. Troponin was negative. proBNP 783. Prolactin unremarkable. CT of chest was negative for PE but did show small to moderate bilateral pleural effusions right greater than left with patchy groundglass opacities
in lower lobes. There was also minimal pericardial effusion. Chest ultrasound was performed demonstrating small to moderate bilateral pleural effusions. Patient had echocardiogram 02/05/2024 which demonstrated preserved ejection fraction with mild
MR, TR and small pericardial effusion without evidence of hemodynamic compromise.
Progress Note - It Help Desk Analyst
Subjective
Date of Service: February 06, 2024
notes R CP is 'much better' after thoracentesis. No longer pain with every breath, only if she takes 'a very very deep breath' and pain is 'much less'
Objective
Labs:
02/06/24 05:43
02/06/24 05:43
Labs
Hgb 10.6 g/dL (12.0-16.0) L 02/06/24 05:43
Hct 32.9 % (37.0-47.0) L 02/06/24 05:43
Plt Count 291 10^3/uL (130-400) 02/06/24 05:43
Sodium 142 mmol/L (135-145) 02/06/24 05:43
Potassium 4.2 mmol/L (3.5-5.1) 02/06/24 05:43
BUN 16 mg/dl (7-17) 02/06/24 05:43
Creatinine 0.7 mg/dL (0.6-1.0) 02/06/24 05:43
Glucose 95 mg/dl (70-99) 02/06/24 05:43
Troponins
02/04/24
08:36
Troponin I < 0.012
Vital Signs and I&O:
Vital Signs
Temp Pulse Resp BP Pulse Ox
98.2 F 80 14 118/55 98
02/06/24 11:20 02/06/24 11:20 02/06/24 11:20 02/06/24 11:20 02/06/24 11:20
Vital Signs
Temp Pulse Resp BP Pulse Ox
98.2 F 80 14 118/55 98
02/06/24 11:20 02/06/24 11:20 02/06/24 11:20 02/06/24 11:20 02/06/24 11:20
Intake & Output
02/04/24 02/05/24 02/06/24 02/07/24
06:59 06:59 06:59 06:59
Intake Total 480 / 480 960 / 960
Balance 480 / 480 960 / 960
Physical Exam
Physical Exam
well appearing, smiling, sitting in bed, no distress
RRR, Nl S1 and s2, no S3 or S4, 02/02 AHSM, no rubs, nl PMI
Lungs CTA b/l
Ext no c/c/e
--- NOTE | 2024-02-06 13:39 | W.PN.HOSP.TC ---
Addendum entered and electronically signed by Mirna Mckenzie MD 02/06/24 14:03:
I saw and evaluated the patient independently. I reviewed the resident�s note and agree with findings and plan as documented by Dr. Cedeno.
GENERAL: well developed, well nourished, female in no apparent distress
HEENT: NC/AT
HEART: regular rate and rhythm, +S1, +S2--no rub heard
LUNGS : clear to auscultation bilaterally--decreased breath sounds bilaterally
ABDOM: soft, nontender, nondistended, + bowel sounds
EXT: no cyanosis, clubbing, or edema
NEUROLOGIC: grossly intact
Pleuritic chest pain--resolved--no evidence of PE on CT scan but does have bilateral pleural effusions--also noted was small pericardial effusion--apprec IR s/p thoracentesis, 250 ml from right drained, studies sent--possible etiology is from recent
appendix surgery (exudative) --apprec cards/pulm--agree history and EKG not consistent with pericarditis--lasix given by cards--ECHO done which shows mild MR/TR--follow up as outpt--no need for colchicine
Elevated Inflammatory Markers-- ESR 26, CRP 24- No history of rash or joint pain-- RF/COURTNEY to r/o autoimmune causes
Recent Hx of Appendicitis- Last day of Augmentin from previous admission in [facility]
DVT Proph - Lovenox
CODE STATUS --full code
OK for d/c
Original Note:
Today's Communication/Plan
-
. Thoracocentesis yesterday. Symptomatically significantly improved. Discharge today.
Assessment / Plan
Assessment / Plan
1. Pleurisy
- Chest CTA negative for PE
- CTA exhibited small to moderate R>L pleural effusions; US confirmed.
- Cardiology/Pulmonology Consulted
- Pain Control PRN
- Pain improved and well-controlled
2. Pleural Effusions
- CTA Chest shows R>L
- IRAD consulted; to perform diagnostic thoracocentesis; 250 cc yellow fluid drained from right. Left side too small to drain.
- Exudative pattern per Light's Criteria. Likely as a result of the patient's recent appendicitis.
- Given 1 dose of LASIX 02/03; LASIX naive. D/c with 5 days of PO Lasix.
3. Pericardial Effusion
= Appreciate Cards; can follow up on an outpatient basis
= ECHO shows mild MR, mild TR
- no evidence of cardiovascular compromise
- per cards, can consider repeat echo as outpatient in 2-3 months.
4. Elevated Inflammatory Markers
- ESR 26, CRP 24
- No history of rash or joint pain.
- RF/COURTNEY to r/o autoimmune causes of pleurisy/pericarditis; pending
5. Recent Hx of Appendicitis
- Last day of Augmentin from previous admission in [facility]
6. DVT PPx
- Lovenox
Anticipated Discharge: Today
Subjective/Interval History
-
Date of Service: February 06, 2024
Patient reports feeling much better today. Patient endorses intermittent pleuritic chest pain, however, it is much improved and much less frequent than it was yesterday. Patient denies shortness of breath, cough, dyspnea on exertion, orthopnea,
chest pain at rest, lower extremity edema.
Objective Data
-
Labs:
Laboratory Results
02/06/24
05:43
WBC 5.8
Hgb 10.6 L
Hct 32.9 L
Plt Count 291
Sodium 142
Potassium 4.2
Chloride 106
Carbon Dioxide 27
BUN 16
Creatinine 0.7
Glucose 95
Calcium 9.0
Total Bilirubin 0.5
AST 14
ALT 10
Alkaline Phosphatase 50
Vital Signs:
Vital Signs
Temp Pulse Resp BP Pulse Ox
98.2 F 80 14 118/55 98
02/06/24 11:20 02/06/24 11:20 02/06/24 11:20 02/06/24 11:20 02/06/24 11:20
I&O
02/05/24 02/06/24 02/07/24
06:59 06:59 06:59
Intake Total 480 / 480 960 / 960
Balance 480 / 480 960 / 960
Review of Systems
-
History Source: Patient
Constitutional: Reports No Symptoms
Respiratory: Reports Pleurisy (much improved.)
Cardiac: Reports No Symptoms
Abdomen/GI: Reports No Symptoms
Musculoskeletal: Reports No Symptoms
Neuro: Reports No Symptoms
Physical Exam
-
General: Well Developed, Well Nourished, No Apparent Distress, Comfortable and Conversant
HEENT: Normocephalic and Atraumatic
Respiratory: Clear to Auscultation
Cardiac: Regular Rhythm and S1/S2
GI: Soft and Nontender
Musculoskeletal: No Edema
Skin: Warm and Dry
Neuro: Awake, Alert and Oriented
Psych: Calm
Data Reviewed
-
Diagnostic Radiology: Report Reviewed by me and Discussed with Patient
Medical Tests (Nuc Med, Echo etc): Report Reviewed by me and Discussed with Patient
Labs: Labs Reviewed by me and Discussed with Patient
--- NOTE | 2024-02-06 14:02 | W.PN.PUL3 ---
Today's Communication / Plan
-
Discharge planning
Follow pleural fluid cytology
Outpatient pulmonary follow-up
Sign off
Assessment
-
Assessment: 58-year-old female nonsmoker with a PMHx of GERD, incidentally discovered pulmonary nodule (3 mm) and appendicitis s/p laparoscopic appendectomy (01/23/2024 in [place], [place]) who presents with severe right-sided chest pain. The
patient and her recently were heading to [place] for vacation when she developed right lower chest/upper abdominal pain and ended up going to hospital at the [facility] on 01/21/2024 was diagnosed with gastritis and discharged on
antacids. They later took a flight to [place] and ended up going to [facility] on 01/22 where she was diagnosed with appendicitis and underwent laparoscopic appendectomy. Course uncomplicated and she was discharged on Augmentin. She went
back to the ER on 01/28/2024 for lower extremity edema which resulted in negative unless mentioned above duplex study for DVT (per patient). She is now been having severe right-sided pleuritic chest pain has been worsening since this past Thursday
(02/01/2024). When pain is not ongoing, she feels okay with no shortness of breath. She had a low-grade fever in the ER to 100 �F, procalcitonin was negative at <0.05, troponin was negative at <0.012, and CTA chest showed bilateral pleural
effusions with no acute PE and bibasilar patchy groundglass opacities above the pleural effusions. Also a small pericardial effusion. She was given pain medications in the ER and admitted to the hospitalist service and now pulmonary consulted for
additional management/recommendations.
Chronic conditions MANAGER CASE MANAGEMENT: GERD, appendicitis s/p laparoscopic appendectomy (12/2023 while in [place], [place]), pulmonary nodule (3mm)
Impression:
#Severe right-sided chest pain which is pleuritic in nature
#Bilateral pleural effusions, suspected to be due to recent appendicitis, likely with peritonitis s/p appendicitis with translocation of ascitic fluid into pleural space; unlikely heart failure
#Anemia
#Elevated proBNP (783 on 02/04/2024)
#Incidentally discovered 3 mm nodule (seen during imaging while at [facility] on 01/21/2024)
#GERD
Plan:
-
Pleural effusion s/p thoracentesis 02/05/2020 24-250 cc. LDH: 187, pH 7.5, and WBC 3069 with 54% monocytes.
Cytology pending
Exudative
Likely result of recent pancreatitis.
Symptomatically improved
Did receive some diuresis
- She said that she also gained about 11 pounds following her hospitalization from [place]
-Echocardiogram with normal LVEF. No significant valvular abnormalities.
Chest x-ray 02/06/2024: Small left pleural effusion unchanged. Resolution of the small right pleural effusion.
To complete Augmentin following her recent bout of appendicitis.
-Cardiology correspondence reviewed. Unlikely to have pericarditis.
They have signed off.
- Incentive spirometer encouraged
-
Discharge [id number] with Dr. Quezada after discharge.
Sign off

Data:
CTA Chest 02/04/2024:
Examination is negative for pulmonary embolism.
Small to moderate bilateral pleural effusions, right slightly larger than left. Compressive atelectasis within the adjacent posterior lower lobes of the lungs.
Additionally, slightly more anteriorly within the lower lobes of the lungs, there is patchy groundglass opacity. This could represent atelectasis, but pneumonia is a differential consideration, and please correlate clinically.
Minimal pericardial effusion.
Of note, no evidence for Marilyn B lines, with no findings that would be considered highly suggestive of a diffuse interstitial edema pattern.
Subjective Data
-
Date of Service:
Date of Service: February 06, 2024
Chief Complaint: Pulmonary Follow Up
Subjective:
Clinically improved
Denies shortness of breath
Denies abdominal pain nausea or vomiting
Review of Systems
General: Fever (n)
Cardiopulmonary: Dyspnea (n)
GI: Abdominal Pain (n), Nausea (n) and Vomiting (n)
Objective Data
Data Reviewed
Vital Signs / I&O / Oxygen:
Vital Signs
Temp Pulse Resp BP Pulse Ox
98.2 F 80 14 118/55 98
02/06/24 11:20 02/06/24 11:20 02/06/24 11:20 02/06/24 11:20 02/06/24 11:20
Intake and Output
02/05/24 02/06/24 02/07/24
06:59 06:59 06:59
Intake Total 480 / 480 960 / 960
Balance 480 / 480 960 / 960
SaO2 98
Physical Exam
General: Respiratory Distress (negative), Comfortable, Chills (negative) and Sweats (negative)
HEENT: Normocephalic and Anicteric
Cardiovascular: S1-S2 and Peripheral Edema (negative)
Respiratory: Wheeze (negative), Crackles (negative), Rhonchi (negative) and Other (Diminished breath sounds at the bases)
GI: Soft, Non Distended, Non Tender and Normal Bowel Sounds
Neurology: AO x 3 and Tremors (negative)
Skin: Warm, Dry and Jaundice (negative)
Labs/Micro/Reports
Lab Data
02/06/24 05:43
02/06/24 05:43
Microbiology
02/05/24 14:58 Pleural Fluid Body Fluid Culture - Preliminary
No Growth After 18-24 Hours
02/05/24 14:58 Pleural Fluid Gram Stain - Preliminary
[2024-02-06 15:37] VITALS: BP 118/70
--- NOTE | 2024-02-06 16:53 | W.DCSUMMARY ---
Addendum entered and electronically signed by Mirna Mckenzie MD 02/06/24 17:35:
Read, reviewed, and agree. See same day progress note for additional details. Time spent coordinating care, DC planning, review of DC plan of care with resident, transition of care, review of records in EMR, med rec, consults, notes, d/w
consultants, nursing, family, and CM = < 30 minutes
Original Note:
Discharge Summary
Discharge Data
Date of Admission: 02/04/24
Date of Discharge: 02/06/24
-
Pending Results: Yes
Additional Pending Results:
anti-Nuclear Antibody IgG Screen
Rheumatoid Factor Screen
Hospital Course
Lala Blanchard is a 58-year-old female with a past medical history of gastrointestinal reflux disease, spondylolysis, lumbar back pain, spondylolysis, and recent appendicitis status post laparoscopic appendectomy approximately 2 weeks ago who
presented to the emergency department at [facility] on February 04, 2024 for right sided pleuritic chest pain.
The patient was scheduled to go to [place] on vacation on January 21, 2024. However on the way to the airport the patient developed a pain underneath her right breast. She went to [facility] that day and imaging was completed which showed
inflammation within the stomach. The patient was diagnosed with gastritis and started on antacids with Protonix and Pepcid and discharged home. The patient changed her flight and have going to [place] 2 days later. Upon arrival in [place] the
patient started to have right lower quadrant abdominal pain that later migrated to the umbilicus. As the pain became more severe she visited an emergency department in [facility]. She was told that she had appendicitis and underwent a
laparoscopic appendectomy on January 23, 2024. The procedure was uncomplicated, however the patient was told that she had some sort of fluid collection that they were thinking about draining. The patient did not know the exact diagnosis upon
history taking here. The patient was discharged after this visit but went back to the emergency room in [place], [place] on January 28, 2024 due to lower extremity edema, left leg worse than right. Ultrasound performed was negative and the patient
was sent home with compression stockings which she has been using since that time.
3 days prior to the patient's arrival at [facility] (02/01/2024) the patient began to develop right-sided chest pain. The patient did not have any difficulty breathing, however, she claims she had shortness of breath secondary only to pain.
Upon presentation to the ER patient had a low-grade fever of 100 �F, but a regular heart rate, regular respiratory rate, and saturating 98% on room air. Labs showed a normal white blood cell count, a negative D-dimer, and a negative troponin. The
patient's proBNP was 783. CTA chest was performed which was negative for an acute PE but there were small to moderate bilateral pleural effusions with a minimal pericardial effusion. Chest ultrasound was performed to confirm the presence of these
small to moderate bilateral pleural effusions and to quantify the liquid to see if it was large enough for thoracocentesis. The patient was given pain control medications and admitted to the hospital that evening.
Upon admission, pulmonary and cardiology services were consulted. An abdominal ultrasound was checked to see if there was an intra-abdominal cause of these pleural effusions. This workup was negative. Additionally a transthoracic echocardiogram
was performed which showed normal systolic and diastolic function and a small pericardial effusion without hemodynamic compromise. Mild mitral regurgitation and mild tricuspid regurgitation were noted as incidental findings. The patient also
underwent a right-sided thoracocentesis which removed 250 cc of clear yellow fluid. Analysis of the fluid showed that it was exudative. The pleural fluid was sent for culture and cytopathology.
Following the thoracocentesis, the patient's clinical symptoms were greatly improved. The patient noted decreased frequency and decreased severity of the pleuritic chest pain. The patient continued to deny shortness of breath, chest pain,
orthopnea, and abdominal symptoms. Given the findings, it was suspected that the patient had an exudative pleural effusion in the setting of recent abdominal infection (appendicitis). The patient was discharged to home on February 06, 2000 2:24
days of admission. The patient was sent home on 5 days of low-dose Lasix and instructed to follow-up with her primary care provider in less than 1 week especially if the pleuritic chest pain worsened, or she began to experience shortness of breath,
chest pain at rest, or lower extremity swelling. Patient was also instructed to follow-up with the patternmaker plastics in 2 to 3 weeks for final results and evaluation.
Discharge Plan
-
Patient Disposition: Home (Routine Discharge)
Discharge Diagnosis/Procedures: Pleural Effusion
Pericardial Effusion
Condition: Good
Diet: Regular
Activity: As tolerated
Referrals:
Karen Worthington CRNP [Family Provider] - in less than 1 week
Naldo Quezada MD [Active] - in three to four weeks (full PFTs on day of office visit)
Prescriptions:
New
furosemide [Lasix] 20 mg tablet
20 mg PO DAILY Qty: 5 0RF
Discontinued
amoxicillin-pot clavulanate 875-125 mg Tablet
1 tab PO BID
Discharge Orders:
Discharge Patient (As Directed); Ordered 02/06/24
Ordered By: Lalo Cedeno
Discharge Date and Time
Discharge Date/Time: 02/06/24 16:04
Print Language: ROMANIAN
[2024-02-08 14:17] LABS: Rheumatoid Agglutinin Less Than 10 IU (<10 IU)
[2024-02-09 00:24] LABS: ANA, IgG Reflex to HEp-2 None Detected (None Detected)
== END 2024-02-06 16:04 | disposition home or self-care (01) | DRG 187 ==
LOC: 4 EAST ACU 14:05
PROVIDERS: Physician Assistant; Radiology Vascular & Interventional Radiology; ADMITTING PHYSICIAN Student in an Organized Health Care Education/Training Program; ATTENDING PHYSICIAN Internal Medicine; CONSULT PHYSICIAN Internal Medicine Cardiovascular Disease; CONSULT PHYSICIAN Internal Medicine Critical Care Medicine; EMERGENCY PHYSICIAN Emergency Medicine; FAMILY PHYSICIAN Nurse Practitioner Family
PROC: 0W993ZX Drainage of Right Pleural Cavity, Percutaneous Approach, Diagnostic (ICD-10-PCS; 2024-02-05)
DX: J90 Pleural effusion, not elsewhere classified (principal); I31.39 Other pericardial effusion (noninflammatory); J98.11 Atelectasis; K37 Unspecified appendicitis; K21.9 Gastro-esophageal reflux disease without esophagitis; R91.1 Solitary pulmonary nodule
CPT/HCPCS: 88305; 32555; 71045; 71046; 71275; 76604; 76700; 80048; 80053; 80076; 83615; 83735; 83880; 83986; 84100; 84132; 84145; 84157; 84484; 85025; 85027; 85379; 85652; 86038; 86140; 86430; 87015; 87070; 87205; 87811; 88112; 89051; 93005; 93306; 93975; 96374; 99285; Q9967

== ENCOUNTER → 2024-02-11 10:34 | Outpatient (REF) | payer OTHER, SELFPAY | LOC: RAD 10:34 | PROVIDERS: ATTENDING PHYSICIAN Hospitalist | DX: J90 Pleural effusion, not elsewhere classified (principal) | CPT/HCPCS: 71046 ==

== ENCOUNTER 2024-03-04 16:17 | Emergency (ER) | payer OTHER, SELFPAY ==
[2024-03-04 16:31] VITALS: BP 144/79
--- NOTE | 2024-03-04 16:35 | ED.GENMED ---
ED Provider Triage
<Tamiko Muller CREATIVE ART DIRECTOR - Last Filed: 03/04/24 16:41>
-
Patient seen by provider in Triage?: Seen in Triage
Attestation: A medical screening examination has been initiated by a qualified medical provider. Based on the assessment performed at this time, it has been determined that an emergent medical condition may exist and the patient has been informed
that further medical evaluation and possible additional diagnostic testing may be needed.
HPI: 58 yo female with no PMHX presents with epigastric pain past 4 days, constant, worse yesterday. Worse with walking. /10 now getting up to walk pain goes to 8/10. Denies n/v/c/d. Denies f/c.
s/p laparoscopic appendectomy (01/23/2024 in [place], [place])
admitted here 02/03-02/05 for bilateral pleural effusions that were drained.
GENERAL: Alert , in no apparent distress
EYE: No visual abnormalities.
NECK: Trachea midline
ENT: No visible abnormalities.
LUNGS: No acute respiratory distress
NEUROLOGICAL: Alert and oriented
SKIN: Skin intact. No visible changes.
MUSCULOSKELETAL: Moving extremities normally
PSYCH: Normal and appropriate interaction.
This is a medical evaluation conducted in person to initiate diagnostic evaluation and provide initial therapeutics. Please see further documentation by the treating clinician.
History of Present Illness
<Tamiko Muller, CREATIVE ART DIRECTOR - Last Filed: 03/04/24 16:41>
General
Chief Complaint: Abdominal Pain
Time Seen by Provider: 03/04/24 20:34
<Rg Epstein DO - Last Filed: 03/04/24 23:23>
History of Present Illness
History of Present Illness:
TIME OF INITIAL ENCOUNTER: 8:40 PM
HPI: The patient presents with upper abdominal pain that has been worsening over the last few days. She had an appendectomy a couple of months ago in [facility]. She then was hospitalized for symptomatic pleural effusions. More recently she
comes in because of abdominal pain. She has been eating. No fevers.
EXAM:
GENERAL: Well appearing in no distress
HEENT: Moist oral mucosa
CARDIOVASCULAR: No murmurs, normal heart rate, regular rhythm, No chest wall tenderness
PULMONARY: No respiratory distress, breath sounds are clear and equal
ABDOMEN: Soft with no peritoneal signs, mild diffuse abdominal including at the right lower quadrant tenderness
NEUROLOGIC: Excellent strength all extremities, no coordination deficits
PSYCHIATRIC: Appropriate mental status, normal insight and judgement
EXTREMITIES: Nontender, no edema, moves all extremities equally
SKIN: No rash, no lesions
NUMBER AND COMPLEXITY OF PROBLEMS ADDRESSED AT THE ENCOUNTER
� Chronic conditions affecting care: Had appendectomy and thoracenteses for pleural effusions in 2023
� Acute Exacerbation and/or Progression of Chronic Illness: This is an acute problem
� Differential Diagnosis includes: Postoperative complication, recurrence of effusions less likely based on her symptoms, intra-abdominal abscess
AMOUNT AND/OR COMPLEXITY OF DATA TO BE REVIEWED AND ANALYZED
� I performed an independent evaluation of and my interpretation is:
EKG:
CT: CAT scan of the abdomen pelvis showed some degree of constipation but otherwise no acute abnormality to explain her pain
X-rays: Chest x-ray by my interpretation was negative
Laboratory Studies: CBC and chemistries relatively unremarkable however the BUN to creatinine ratio is high at 29-0.8.
Other:
� Review of other/old records: I reviewed records, the patient had an appendectomy January 23, 2024 in [place]. She was seen here last month and had a BNP of 783, a CTA that was negative for PE but was found to have small to
moderate bilateral pleural effusions and minimal pericardial effusion.
� Clinical information was obtained by an independent historian: I spoke to at bedside
� Prescriptions/Medications Considered but not given:
� Further testing considered but not performed:
RISK OF COMPLICATIONS AND/OR MORBIDITY OR MORTALITY OF PATIENT MANAGEMENT
� Social determinants of health affecting care: Lives at home
� Discussion with other providers:
� Escalation of care including admission/observation vs risk of discharge considered: As patient had a rather complex course over the last few months, will obtain CT imaging today for further evaluation
ANY OTHER UPDATES:
11:15 PM: I reassessed patient�she appears fairly comfortable. Only abnormality noted on CT imaging with his constipation�patient states that she has been having a reasonable amount of bowel movements but we did talk about trying some MiraLAX as
well.
Past History
<Tamiko Muller, CREATIVE ART DIRECTOR - Last Filed: 03/04/24 16:41>
Past History
ED Past Medical History: None
ED Past Surgical History: None
Phy Exam
<Rg Epstein DO - Last Filed: 03/04/24 23:23>
Physical Exam
Physical Exam:
See HPI
Course
<Tamiko Muller, CREATIVE ART DIRECTOR - Last Filed: 03/04/24 16:41>
Orders/Labs/Results
Orders:
Orders
03/04/24 16:41
CR Chest - 2 Views Urgent
Comment:
Reason For Exam: epigastric pain, recent pleural effusions drained
03/04/24 16:46
Complete Blood Count/With Diff Urgent
Comprehensive Metabolic Panel Urgent
Lipase Urgent
03/04/24 20:42
CT Abd/pelvis W Iv Cont Urgent
Comment:
Reason For Exam: appendectomy 2M ago; increasing abd pain
Abnormal Lab Results
03/04/24
16:46
BUN 29 H mg/dl
(7-17)
Glucose 110 H mg/dl
(70-99)
03/04/24 16:46
03/04/24 16:46
Vital Signs
Initial and Last Documented VS:
Initial Vital Signs
Temp Pulse Resp BP Pulse Ox
36.7 C 72 18 144/79 98
03/04/24 16:31 03/04/24 16:31 03/04/24 16:31 03/04/24 16:31 03/04/24 16:31
Last Documented Vital Signs
Temp Pulse Resp BP Pulse Ox
36.7 C 72 18 125/70 97
03/04/24 16:31 03/04/24 19:02 03/04/24 21:55 03/04/24 19:02 03/04/24 19:02
<Rg Epstein, DO - Last Filed: 03/04/24 23:23>
Orders/Labs/Results
Orders:
Orders
03/04/24 16:41
CR Chest - 2 Views Urgent
Comment:
Reason For Exam: epigastric pain, recent pleural effusions drained
03/04/24 16:46
Complete Blood Count/With Diff Urgent
Comprehensive Metabolic Panel Urgent
Lipase Urgent
03/04/24 20:42
CT Abd/pelvis W Iv Cont Urgent
Comment:
Reason For Exam: appendectomy 2M ago; increasing abd pain
Abnormal Lab Results
03/04/24
16:46
BUN 29 H mg/dl
(7-17)
Glucose 110 H mg/dl
(70-99)
03/04/24 16:46
03/04/24 16:46
Vital Signs
Initial and Last Documented VS:
Initial Vital Signs
Temp Pulse Resp BP Pulse Ox
36.7 C 72 18 144/79 98
03/04/24 16:31 03/04/24 16:31 03/04/24 16:31 03/04/24 16:31 03/04/24 16:31
Last Documented Vital Signs
Temp Pulse Resp BP Pulse Ox
36.7 C 72 18 125/70 97
03/04/24 16:31 03/04/24 19:02 03/04/24 21:55 03/04/24 19:02 03/04/24 19:02
<Rg Epstein DO - Last Filed: 03/04/24 23:23>
*Critical Care Note
Total Time (30-74mins, 75-104mins- exclusive of procedures): Not Applicable
ED Attending Note
<Tamiko Muller CREATIVE ART DIRECTOR - Last Filed: 03/04/24 16:41>
-
Portions of this chart may have been created with voice recognition software.� Occasional wrong word or��sound alike� substitutions may have occurred due to the inherent limitations of voice recognition software.
Discharge Plan
Departure
Patient Disposition: Home (Routine Discharge)
Date of Disposition: 03/04/24
Time of Disposition: 23:22
Patient with high blood pressure during this ER visit?: Yes
Discharge Problem:
Abdominal pain
Instructions: Constipation, Adult (DC), Abdominal Pain
Prescriptions:
No Action
furosemide [Lasix] 20 mg tablet
20 mg PO DAILY Qty: 5 0RF
Referrals:
Kathrine Menard MD [Family Provider] -
Activity Restrictions/Additional Instructions:
The cause of your pain is unclear. The only abnormality of the radiologist noted on the CAT scan was an increased amount of stool�consider taking [id number] MiraLAX. I saw no sign of fluid buildup on the chest x-ray. Blood work is normal
including normal white blood cell count, hemoglobin, kidney function, liver test, pancreas test.
Interventions
Interventions:
*Risk Screen - Suicide Last Done: 03/04/24 21:56
*General Assessment Last Done: 03/04/24 21:56
*Neglect/Abuse Screening Last Done: 03/04/24 21:56
*ED COVID-19 Vaccine History Last Done: 03/04/24 21:56
ES-Apravl-Qltgelchfj Assessment Last Done: 03/04/24 21:55
Discharge Date and Time
Print Language: TAMAZIGHT
[2024-03-04 16:53] LABS: % Basophils 1.3 % (0-2); % Eosinophils 2.1 % (0-6); % Immature Granulocytes 0.1 % (0-0.5); % Lymphocytes 31.8 % (20.5-51.1); % Monocytes 7.9 % (1.7-9.3); % Neutrophils 56.8 % (42.2-75.2); Absolute Basophils 0.1 10^3/uL (0-0.2); Absolute Eosinophils 0.1 10^3/uL (0-0.7); Absolute Lymphocytes 2.1 10^3/uL (1.2-3.4); Absolute Monocytes 0.5 10^3/uL (0.1-0.6); Absolute Neutrophils 3.8 10^3/uL (1.4-6.5); Hematocrit 40.6 % (37.0-47.0); Hemoglobin 13.8 g/dL (12.0-16.0); Mean Corpuscular Hgb 30.1 pg (27.0-31.0); Mean Corpuscular Volume 88.5 fL (81.0-99.0); Mean Platelet Volume 8.8 fL (7.4-10.4); Nucleated Red Blood Cells % 0 %; Platelet Count 309 10^3/uL (130-400); Red Blood Cell Count 4.59 10^6/uL (4.20-5.40); White Blood Cell Count 6.7 10^3/uL (4.8-10.8)
[2024-03-04 17:19] LABS: ALT (SGPT) 24 U/L (0-35); AST (SGOT) 28 U/L (14-36); Albumin 4.8 g/dl (3.5-5.0); Alkaline Phosphatase 73 U/L (38-126); Blood Urea Nitrogen 29 mg/dl (7-17); Calcium 9.9 mg/dl (8.4-10.2); Carbon Dioxide 27 mmol/L (22-30); Chloride 101 mmol/L (98-107); Glucose 110 mg/dl (70-99); Sodium 140 mmol/L (135-145); Total Bilirubin 0.9 mg/dl (0.2-1.3); Total Protein 7.3 g/dl (6.3-8.2); eGFR > 60.00
[2024-03-04 18:30] LABS: Lipase 202 U/L (23-300)
[2024-03-04 19:02] VITALS: BP 125/70
== END 2024-03-04 23:40 | disposition home or self-care (01) ==
LOC: EMR 16:17
PROVIDERS: Registered Nurse; EMERGENCY PHYSICIAN Emergency Medicine; FAMILY PHYSICIAN Hospitalist
DX: R13.10 Dysphagia, unspecified (principal); R10.10 Upper abdominal pain, unspecified; J90 Pleural effusion, not elsewhere classified; K59.00 Constipation, unspecified; Z90.49 Acquired absence of other specified parts of digestive tract
CPT/HCPCS: 99284; 71046; 74177; 80053; 83690; 85025; Q9967

== ENCOUNTER → 2024-11-22 10:20 | Outpatient (REF) | payer OTHER, SELFPAY | LOC: RAD 10:20 | PROVIDERS: ATTENDING PHYSICIAN Hospitalist | DX: R07.89 Other chest pain (principal); M54.2 Cervicalgia | CPT/HCPCS: 36415; 71046; 72040 ==

== ENCOUNTER → 2025-01-16 07:48 | Outpatient (REF) | payer OTHER, SELFPAY | LOC: WDC 07:48 | PROVIDERS: ATTENDING PHYSICIAN Obstetrics & Gynecology Gynecology; FAMILY PHYSICIAN Hospitalist | DX: Z12.31 Encounter for screening mammogram for malignant neoplasm of breast (principal) | CPT/HCPCS: 77063; 77067 ==